=== PATIENT | female | born 1960 | race Caucasian/White ===

== ENCOUNTER → 2016-10-08 | Outpatient (CLI) | payer OTHER ==
[~2016-10-08] MED LIST: ATORVASTATIN CA40 MG PO; CIPRO500 MG PO; FLAGYL500 MG PO; LOESTRIN1 EACH PO; MOTRIN800 MG PO; SINGULAIR10 MG PO
== END | disposition home or self-care (01) ==
LOC: RAD 09:33
DX: E04.1 Nontoxic single thyroid nodule (principal); E66.9 Obesity, unspecified; E55.9 Vitamin D deficiency, unspecified
CPT/HCPCS: 76536